=== PATIENT | female | born 1995 | race African-American/Black ===

== ENCOUNTER → 2023-05-01 | Outpatient (CLI) | payer OTHER | LOC: M WHC 12:49 | PROVIDERS: ATTEND Advanced Practice Midwife | DX: Z36.87 Encounter for antenatal screening for uncertain dates (principal); Z3A.19 19 weeks gestation of pregnancy ==

== ENCOUNTER → 2023-09-17 | Outpatient (CLI) | payer OTHER ==
[~2023-09-17] VITALS: Ht 162.6 cm; Wt 61.8 kg
[~2023-09-17] MED LIST: ALBUTEROL SULFATE 2.5MG/0.5ML INH NEB SOLN INH PRN; EPINEPHrine INJ 1 MG/ML 1ML AMP IM PRN; NS 1,000 ML IV SCH; PRENTAB9 PO; diphenhydrAMINE 50MG/ML VIAL IV PRN; methylPREDNISolone 125MG 2ML VIAL IV PRN
[2023-09-17 12:50] VITALS: BP 115/62; O2SAT 100
[2023-09-17] MEDS: IRON SUCROSE 300 MG in NS 250 ML OVER 90 MIN. IV ONE (13:13)
[2023-09-17 14:50] VITALS: BP 125/66; O2SAT 98
== END ==
LOC: M INFU 12:32
PROVIDERS: ATTEND Family Medicine
DX: O99.019 Anemia complicating pregnancy, unspecified trimester (principal); Z3A.00 Weeks of gestation of pregnancy not specified
CPT/HCPCS: 96365; J1756

== ENCOUNTER 2023-09-21 01:30 | Inpatient (IN) | payer OTHER ==
[~2023-09-21] VITALS: Ht 162.6 cm; Wt 61.6 kg
[2023-09-21] VITALS (59 sets, daily range): BP systolic 93–136; BP diastolic 55–95; O2SAT 100
[2023-09-21] MEDS ORDERED: PRENTAB9 PO (01:57)
[2023-09-21 02:46] LABS: HEMOGLOBIN 9.8 g/dl (12.0-15.5); MEAN CORPUSCULAR HEMOGLOBIN 24.4 pg (27.0-33.0); MEAN CORPUSCULAR HGB CONC 32.7 g/dl (32.0-36.5); MEAN CORPUSCULAR VOLUME 74.8 fl (80.0-96.0); PLATELET COUNT, AUTOMATED 308 10^3/uL (150-450); RED BLOOD COUNT 4.01 10^6/uL (4.00-5.40)
[2023-09-21] MEDS: LACTATED RINGER'S 1000 ML IV STA (02:51)
[2023-09-21] MEDS ORDERED: OXYTOCIN DRIP 30 UNITS in IV 1 EA IV SCH (02:55)
[2023-09-21] MEDS ORDERED: OXYTOCIN DRIP 30 UNITS in IV 1 EA IV PRN (02:55)
[2023-09-21] MEDS ORDERED: OXYTOCIN INJ 10UNITS/ML 1ML VIAL IV PRN (02:55)
[2023-09-21] MEDS ORDERED: CARBOPROST TROMETHAMINE 250 MCG/ML AMP IM PRN (02:55)
[2023-09-21] MEDS ORDERED: TRANEXAMIC ACID INJection 1,000 MG in NS 100 ML IV PRN (02:55)
[2023-09-21] MEDS ORDERED: METHYLERGONOVINE MALEATE 0.2MG/ML 1ML VIAL IM PRN ×2 (02:55→16:05)
[2023-09-21] MEDS ORDERED: OXYTOCIN INJ 10UNITS/ML 1ML VIAL IM PRN (02:55)
[2023-09-21] MEDS ORDERED: LIDOCAINE 1% MDV 20ML VIAL INFIL PRN (02:55)
[2023-09-21] MEDS: LR 1,000 ML IV ONE (02:56)
[2023-09-21] MEDS ORDERED: LR 500 ML IV PRN (03:35)
[2023-09-21] MEDS ORDERED: ONDANSETRON 4MG 2ML VIAL IV PRN ×2 (03:35→16:05)
[2023-09-21] MEDS ORDERED: EPIDURAL/PCA KEYS XX PRN (03:35)
[2023-09-21] MEDS ORDERED: diphenhydrAMINE 50MG/ML VIAL IV PRN (03:35)
[2023-09-21] MEDS ORDERED: ePHEDrine SULFATE 25 MG/5 ML(5MG/ML) SYRINGE IVP PRN (03:35)
[2023-09-21] MEDS ORDERED: NALOXONE INJ 0.4MG/1ML VIAL IV PRN (03:35)
[2023-09-21] MEDS ORDERED: FENTANYL 2MCG/ML ROPIVACAINE 0.2% IN 0.9% NACL 100ML IVBAG As Ordered ONE (03:39)
[2023-09-21] MEDS: LR 1,000 ML IV SCH ×3 (04:02→16:05)
[2023-09-21] MEDS: FENTANYL/ROPIVACAINE/NACL BAG 100 ML EPIDURAL SCH (04:11)
[2023-09-21] MEDS: OXYTOCIN DRIP 30 UNITS in IV 1 EA IV PRN (15:39)
[2023-09-21] MEDS ORDERED: RHOGAM 300MCG (1500IU) INJ IM SCH (16:05)
[2023-09-21] MEDS ORDERED: DOCUSATE SODIUM 100MG CAPSULE PO PRN (16:05)
[2023-09-21] MEDS ORDERED: DIBUCAINE 1% OINTMENT 30GM TOP PRN (16:05)
[2023-09-21] MEDS ORDERED: METOCLOPRAMIDE INJ 10MG/2ML VIAL IV PRN (16:05)
[2023-09-21] MEDS ORDERED: IBUPROFEN 600MG TAB PO PRN (16:05)
[2023-09-21] MEDS ORDERED: ACETAMINOPHEN TAB 650MG DOSE (2X325MG) PO PRN (16:05)
[2023-09-21] MEDS: OXYTOCIN DRIP 30 UNITS in IV 1 EA IV SCH (16:15)
[2023-09-21] MEDS: IBUPROFEN 800 MG TAB PO PRN (17:50)
[2023-09-21] MEDS: ACETAMINOPHEN 500 MG TAB PO PRN (18:32)
[2023-09-22 06:00] VITALS: BP 122/66; O2SAT 100
[2023-09-22] MEDS: PRENATAL VITAMINS CHEWABLE TABLET PO SCH (07:31)
[2023-09-22 18:00] VITALS: BP 119/71; O2SAT 100
[2023-09-22 20:42] VITALS: BP 116/68; O2SAT 100
[2023-09-23 05:50] VITALS: BP 113/74; O2SAT 100
[2023-09-23] MEDS: MEASLES,MUMPS,RUBELLA VACCINE INJ (MMR-II) SC.IMMUN ONE (07:18)
== END 2023-09-23 11:36 | disposition home or self-care (01) | DRG 807 ==
LOC: M LDO 01:30 → M LDI 02:06 → M OBS 17:42
PROVIDERS: ADMIT Obstetrics & Gynecology; ATTEND Obstetrics & Gynecology
PROC: 10E0XZZ Delivery of Products of Conception, External Approach (ICD-10-PCS; principal; 2023-09-21)
PROC: 0KQM0ZZ Repair Perineum Muscle, Open Approach (ICD-10-PCS; 2023-09-21)
PROC: 10907ZC Drainage of Amniotic Fluid, Therapeutic from Products of Conception, Via Natural or Artificial Opening (ICD-10-PCS; 2023-09-21)
DX: O99.02 Anemia complicating childbirth (principal); Z37.0 Single live birth; O70.1 Second degree perineal laceration during delivery; Z3A.39 39 weeks gestation of pregnancy

== ENCOUNTER 2024-08-19 09:10 | Emergency (ER) | payer OTHER ==
[~2024-08-19] VITALS: Ht 162.6 cm; Wt 54.8 kg
[~2024-08-19 09:10] MED LIST changes: -ALBUTEROL SULFATE 2.5MG/0.5ML INH NEB SOLN INH PRN; -EPINEPHrine INJ 1 MG/ML 1ML AMP IM PRN; -NS 1,000 ML IV SCH; -diphenhydrAMINE 50MG/ML VIAL IV PRN; -methylPREDNISolone 125MG 2ML VIAL IV PRN
[2024-08-19 09:21] VITALS: BP 146/99; TEMP 99; O2SAT 100
[2024-08-19] MEDS ORDERED: BUSP10TA PO (09:32)
[2024-08-19] MEDS ORDERED: LEXA1TAB2 PO (09:32)
[2024-08-19] MEDS ORDERED: VALS1TAB67 PO (09:32)
[2024-08-19] MEDS ORDERED: HYDR-643 PO (09:32)
[2024-08-19] MEDS ORDERED: AMLO1TAB24 PO (09:32)
[2024-08-19] MEDS: NS (Normal Saline) 0.9% 1,000 ML IV ONE (10:04)
[2024-08-19 10:10] LABS: BASO % 0.2 % (0.0-1.0); HEMATOCRIT 37.8 % (36.0-47.0); HEMOGLOBIN 13.2 g/dl (12.0-15.5); LYMPH # 1.8 10^3/uL (1.5-5.0); LYMPH % 10.2 % (24.0-44.0); MEAN CORPUSCULAR HEMOGLOBIN 28.1 pg (27.0-33.0); MEAN CORPUSCULAR HGB CONC 34.9 g/dl (32.0-36.5); MEAN CORPUSCULAR VOLUME 80.6 fl (80.0-96.0); MONO # 1.8 10^3/uL (0.0-0.8); MONO % 9.9 % (2.0-8.0); NEUTROPHILS % 79.3 % (36.0-66.0); PLATELET COUNT, AUTOMATED 285 10^3/uL (150-450); RED BLOOD COUNT 4.69 10^6/uL (4.00-5.40); WHITE BLOOD COUNT 17.7 10^3/uL (4.0-10.0)
[2024-08-19 10:41] LABS: LIPASE 26 U/L (12-53)
[2024-08-19 10:42] LABS: HCG, SERUM QUALITATIVE NEGATIVE (NEGATIVE)
[2024-08-19 10:43] LABS: ALBUMIN 4.1 G/DL (3.2-5.2); ALKALINE PHOSPHATASE 63 U/L (35-104); ALT/SGPT 12 U/L (7.0-40); AST/SGOT 14 U/L (<34); BILIRUBIN,DIRECT 0.4 MG/DL (<0.4); BLOOD UREA NITROGEN 9 MG/DL (9-23); CALCIUM LEVEL 9.1 MG/DL (8.5-10.1); CARBON DIOXIDE LEVEL 25 MMOL/L (20-31); CHLORIDE LEVEL 104 MMOL/L (98-107); CK-MB VALUE MASS < 1.0 NG/ML (<3.6); CPK CREATINE PHOSPHOKINASE 95 U/L (34-145); CREATININE FOR GFR 0.65 MG/DL (0.55-1.30); GLOMERULAR FILTRATION RATE > 60.0 (>60); GLUCOSE, FASTING 79 MG/DL (60-100); MB/CK RELATIVE INDEX 1.05 (< OR =4); POTASSIUM SERUM 3.6 MMOL/L (3.5-5.1); SODIUM LEVEL 142 MMOL/L (136-145); TOTAL PROTEIN 7.4 G/DL (5.7-8.2)
[2024-08-19 10:44] LABS: FREE T4 1.29 NG/DL (0.89-1.76)
[2024-08-19 10:45] LABS: THYROID STIMULATING HORMONE 0.333 uIU/ML (0.55-4.78)
[2024-08-19] MEDS ORDERED: ISOVUE-370 76% 100ML VIAL As Ordered ONE (11:25)
[2024-08-19 11:44] LABS: CK-MB VALUE MASS < 1.0 NG/ML (<3.6)
[2024-08-19 11:45] LABS: CPK CREATINE PHOSPHOKINASE 84 U/L (34-145); MB/CK RELATIVE INDEX 1.19 (< OR =4)
[2024-08-19] MEDS ORDERED: AMOX875T2 PO (12:40)
[2024-08-19] MEDS: AUGMENTIN 875 MG TAB PO ONE (13:49)
== END 2024-08-19 14:16 | disposition home or self-care (01) ==
LOC: M ED 09:10 → EDBD 09:10 → M ED 14:16
DX: J18.9 Pneumonia, unspecified organism (principal); R07.9 Chest pain, unspecified
CPT/HCPCS: 71045; 71275; 80047; 80048; 80076; 82550; 82553; 83690; 84439; 84443; 84484; 84703; 85025; 87040; 87486; 87581; 87633; 87798; 93005; 93041; 94760; 99284; Q9967

== ENCOUNTER → 2024-11-08 | Outpatient (CLI) | payer OTHER ==
[~2024-11-08] MED LIST changes: +AMLO1TAB24 PO; +AMOX875T2 PO; +BUSP10TA PO; +HYDR-643 PO; +LEXA1TAB2 PO; +VALS1TAB67 PO
== END ==
LOC: M PLAIMG 07:19
PROVIDERS: ATTEND Otolaryngology
DX: J32.8 Other chronic sinusitis (principal)

== ENCOUNTER → 2024-11-23 | Outpatient (CLI) | payer OTHER | LOC: M CARPUL 10-19 14:38 | PROVIDERS: ATTEND Internal Medicine | DX: R06.00 Dyspnea, unspecified (principal) ==

== ENCOUNTER → 2024-11-28 | Outpatient (CLI) | payer OTHER ==
[~2024-11-28] MED LIST changes: +METHACHOLINE KIT (6 VIAL.NEB PREMIX) INH ONE
== END ==
LOC: M CARPUL 07:22
PROVIDERS: ATTEND Internal Medicine
DX: R06.00 Dyspnea, unspecified (principal)
CPT/HCPCS: 94070; 95070; J7674